=== PATIENT | female | born 1990 | race Caucasian/White ===

== ENCOUNTER 2018-10-29 11:07 | Emergency (ER) | payer OTHER ==
[2018-10-29] MEDS ORDERED: MORPHINE SULFATE 4 MG INJ IV ONE (12:01)
[2018-10-29] MEDS ORDERED: Sodium Chloride 0.9% 1000 ML 1,000 ML IV STA (12:01)
[2018-10-29] MEDS ORDERED: Zofran 4 MG/2 ML VIAL IV ONE (12:01)
--- NOTE | 2018-10-29 12:06 | ERPHSYRPT ---
- History of Present Illness Time Seen by Provider: 10/29/18 11:58 Historian: patient Exam Limitations: no limitations Patient Subjective Stated Complaint: pt reports at 4 am this morning she began having vomiting and diarrhea. pt report the vomiting is making her incision from her hysterectomy on friday hurt worse Triage Nursing Assessment: pt a&ox3. skin warm, dry, pink. cap refill <3 sec. skin turgor normal. pt has 3 lap incisions to abd. incision to right abd slightly reddened. no drainage noted to any of the incisions. all incisions well approximated. Physician History: 0.6-year-old white female with history of endometriosis status post 6 days ago Patient arrives with complaint of nausea vomiting diarrhea she states she is having abdominal pain from having the vomiting. No fevers Past medical history includes endometriosis Past surgical history includes tonsillectomy Timing/Duration: today Activities at Onset: none Abdominal Pain Onset Location: generalized abdomen Severity of Pain-Max: moderate Severity of Pain-Current: moderate Modifying Factors: Improves With: vomiting. Worsens With: analgesics, antacids , breathing, coughing, defecating, eating, exercise, lying down, movement, palpation, rest, urinating, position, walking Associated Symptoms: diarrhea, nausea, vomiting, No back, No chest pain, No diaphoresis, No fever/chills, No fatigue, No headache, No heartburn, No loss of appetite, No neck pain, No rash, No shortness of breath, No syncope Previous symptoms: no prior history Allergies/Adverse Reactions: lactose Adverse Reaction (Mild, Verified 10/12/15 06:21) nystatin Adverse Reaction (Mild, Verified 10/12/15 06:21) Itching Home Medications: Hydrocodone/APAP 5-325 Tab^^^ [Gravette 5-325 Tablet^^^] 1 - 2 tab PO Q4HPRN PRN MDD 6 10/29/18 [History] Ibuprofen 600 mg PO Q6H 10/29/18 [History] Hx Tetanus, Diphtheria Vaccination/Date Given: Yes Hx Influenza Vaccination/Date Given: No Hx Pneumococcal Vaccination/Date Given: No Immunizations Up to Date: Yes - Review of Systems Constitutional: No Fever, No Chills Eyes: No Symptoms Ears, Nose, & Throat: No Symptoms Respiratory: No Cough, No Dyspnea Cardiac: No Chest Pain, No Edema, No Syncope Abdominal/Gastrointestinal: Abdominal Pain, Nausea, Vomiting, Diarrhea, No Constipation, No Hematemesis, No Hematochezia, No Melena, No Dysphagia, No Appetite Changes Genitourinary Symptoms: No Dysuria Musculoskeletal: No Back Pain, No Neck Pain Skin: No Rash Neurological: No Dizziness, No Focal Weakness, No Sensory Changes Psychological: No Symptoms Endocrine: No Symptoms All Other Systems: Reviewed and Negative - Past Medical History Pertinent Past Medical History: Yes Neurological History: No Pertinent History ENT History: No Pertinent History Cardiac History: No Pertinent History Respiratory History: Asthma Endocrine Medical History: No Pertinent History Musculoskeletal History: No Pertinent History GI Medical History: No Pertinent History History: No Pertinent History Psycho-Social History: No Pertinent History Female Reproductive Disorders: No Pertinent History Other Medical History: one miscarrage taken naturally - Past Surgical History Past Surgical History: Yes (T&A) Neuro Surgical History: No Pertinent History Cardiac: No Pertinent History Respiratory: No Pertinent History Gastrointestinal: No Pertinent History Genitourinary: No Pertinent History Musculoskeletal: No Pertinent History Female Surgical History: Hysterectomy Other Surgical History: tonsils - Social History Smoking Status: Former smoker Exposure to second hand smoke: No Drug Use: none Patient Lives Alone: No - Female History Hx Last Menstrual Period: hyster Hx Now: No - Nursing Vital Signs Nursing Vital Signs: Initial Vital Signs Temperature 97.8 F 10/29/18 11:31 Pulse Rate 66 10/29/18 11:31 Respiratory Rate 18 10/29/18 11:31 Blood Pressure 137/77 10/29/18 11:31 O2 Sat by Pulse Oximetry 100 10/29/18 11:31 Pain Scale Pain Intensity 2 - Physical Exam General Appearance: mild distress, alert Eye Exam: PERRL/EOMI, eyes nml inspection Ears, Nose, Throat Exam: normal ENT inspection, pharynx normal, moist mucous membranes Neck Exam: normal inspection, non-tender, supple, full range of motion Respiratory Exam: normal breath sounds, lungs clear, No respiratory distress Cardiovascular Exam: regular rate/rhythm, normal heart sounds, capillary refill <2 sec Gastrointestinal/Abdomen Exam: soft, No tenderness, No mass Back Exam: normal inspection, normal range of motion, No CVA tenderness, No vertebral tenderness Extremity Exam: normal inspection Neurologic Exam: alert, oriented x 3, cooperative, delivery coordinator II-XII nml as tested, normal mood/affect, nml cerebellar function, sensation nml, No motor deficits Skin Exam: normal color, warm, dry SpO2 Interpretation: normal (100%) SpO2: 100 - Course Nursing assessment & vital signs reviewed: Yes - CT Exams Abdomen/Pelvis CT Interpretation: Discussed w/radiologist (CT abdomen and pelvis: Impression 1. Status post partial hysterectomy. Tiny pelvic free fluid either postsurgical or from rupture/leaking cyst. 2. Incidental hepatomegaly. 3. Remaining CT abdomen/pelvis with contrast exam is negative..) Ordered Tests: Active Orders 24 hr Category Date Time Status IV Insertion STAT Care 10/29/18 12:01 Active ABDOMEN AND PELVIS W CONTRAST [CT] Stat Exams 10/29/18 13:49 Completed AMYLASE Stat Lab 10/29/18 12:30 Completed CBC W DIFF Stat Lab 10/29/18 12:30 Completed CMP Stat Lab 10/29/18 12:30 Completed CULTURE,URINE Stat Lab 10/29/18 12:05 Received LIPASE Stat Lab 10/29/18 12:30 Completed UA W/RFX UR CULTURE Stat Lab 10/29/18 12:05 Completed Medication Summary Discontinued Medications Generic Name Dose Route Start Last Admin Trade Name Freq PRN Reason Stop Dose Admin Sodium Chloride 1,000 mls @ 999 mls/hr 10/29/18 12:01 10/29/18 14:19 Sodium Chloride 0.9% 1000 Ml IV 10/29/18 13:01 Infused .Q1H1M STA Infusion Sodium Chloride Confirm 10/29/18 12:23 Sodium Chloride 0.9% 1000 Ml Administered 10/29/18 12:24 Dose 1,000 mls @ ud .ROUTE .STK-MED ONE Morphine Sulfate 4 mg 10/29/18 12:01 10/29/18 12:28 Morphine Sulfate 4 Mg Inj IV 10/29/18 12:02 4 mg STAT ONE Administration Morphine Sulfate Confirm 10/29/18 12:23 Morphine Sulfate 4 Mg Inj Administered 10/29/18 12:24 Dose 4 mg .ROUTE .STK-MED ONE Ondansetron HCl 4 mg 10/29/18 12:01 10/29/18 12:28 Zofran 4 Mg/2 Ml Vial IV 10/29/18 12:02 4 mg STAT ONE Administration Ondansetron HCl Confirm 10/29/18 12:23 Zofran 4 Mg/2 Ml Vial Administered 10/29/18 12:24 Dose 4 mg .ROUTE .STK-MED ONE Lab/Rad Data: Laboratory Result Diagrams 10/29/18 12:30 10/29/18 12:30 Laboratory Results 10/29/18 10/29/18 10/29/18 Range/Units 12:30 12:30 12:05 WBC 15.5 H (4.0-10.5) K/mm3 RBC 4.74 (4.1-5.4) M/mm3 Hgb 13.9 (12.0-16.0) gm/dl Hct 41.2 (35-47) % MCV 86.9 (78-100) fl MCH 29.3 (26-32) pg MCHC 33.7 (32-36) g/dl RDW 12.9 (11.5-14.0) % Plt Count 399 (150-450) K/mm3 MPV 9.8 H (6-9.5) fl Gran % 78.9 H (36.0-66.0) % Eos # (Auto) 0.17 (0-0.5) Absolute Lymphs (auto) 1.76 (1.0-4.6) Absolute Monos (auto) 1.32 H (0.0-1.3) Lymphocytes % 11.4 L (24.0-44.0) % Monocytes % 8.5 (0.0-12.0) % Eosinophils % 1.1 (0.00-5.0) % Basophils % 0.1 (0.0-0.4) % Absolute Granulocytes 12.18 H (1.4-6.9) Basophils # 0.02 (0-0.4) Sodium 140 (137-145) mmol/L Potassium 4.4 (3.5-5.1) mmol/L Chloride 103 (98-107) mmol/L Carbon Dioxide 24 (22-30) mmol/L Anion Gap 17.5 H (5-15) MEQ/L BUN 9 (7-17) mg/dL Creatinine 0.53 (0.52-1.04) mg/dL Estimated GFR > 60.0 ML/MIN Glucose 92 (74-106) mg/dL Calcium 9.5 (8.4-10.2) mg/dL Total Bilirubin 0.40 (0.2-1.3) mg/dL AST 38 H (14-36) U/L ALT 26 (0-35) U/L Alkaline Phosphatase 118 (38-126) U/L Serum Total Protein 7.2 (6.3-8.2) g/dL Albumin 4.3 (3.5-5.0) g/dL Amylase 75 (30-110) U/L Lipase 52 (23-300) U/L Urine Color STRAW (YELLOW) Urine Appearance SLIGHTLY CLOUDY (CLEAR) Urine pH 6.0 (5-6) Ur Specific [place] 1.006 (1.005-1.025) Urine Protein NEGATIVE (Negative) Urine Ketones NEGATIVE (NEGATIVE) Urine Blood SMALL (0-5) Harsh/ul Urine Nitrite NEGATIVE (NEGATIVE) Urine Bilirubin NEGATIVE (NEGATIVE) Urine Urobilinogen NEGATIVE (0-1) mg/dL Ur Leukocyte Esterase MODERATE (NEGATIVE) Urine WBC (Auto) 11-15 (0-5) /HPF Urine RBC (Auto) 0-2 (0-2) /HPF U Epithel Cells (Auto) MODERATE (FEW) /HPF Urine Bacteria (Auto) RARE (NEGATIVE) /HPF Urine Mucus (Auto) SLIGHT (NEGATIVE) /HPF Urine Culture Reflexed YES (NO) Urine Glucose NEGATIVE (NEGATIVE) mg/dL - Progress Progress: improved Progress Note: 10/29/18 15:[address] feeling better[address] Will place patient on Bactrim for urinary tract infection and Zofran. Patient with CT showing tiny amount of pelvic free fluid either postsurgical for ruptured/leaking cyst patient with recent hysterectomy. - Departure Departure Disposition: Home Clinical Impression: status post recent Abdominal pain Qualifiers: Abdominal location: upper abdomen, unspecified Qualified Code(s): R10.10 - Upper abdominal pain, unspecified Vomiting Qualifiers: Vomiting type: unspecified Vomiting Intractability: non-intractable Nausea presence: with nausea Qualified Code(s): R11.2 - Nausea with vomiting, unspecified UTI (urinary tract infection) Qualifiers: Urinary tract infection type: site unspecified Hematuria presence: without hematuria Qualified Code(s): N39.0 - Urinary tract infection, site not specified Condition: Fair Critical Care Time: No Referrals: EUSEBIO SCHAEFFER [Primary Care Provider] - Additional Instructions: Return home. Plenty of fluids clear fluids only 24-48 hours if nausea vomiting. Zofran as directed. Bactrim DS one orally twice a day for 10 days. Followup with your family . Return for acute distress or for severe symptoms. Prescriptions: Ondansetron ODT 4 MG [Zofran Odt 4 mg] 4 mg PO Q6H PRN PRN #10 tab.rapdis PRN Reason: nausea and vomiting Smz/Tmp Ds Tablet [Bactrim Ds Tablet] 1 tab PO BID #20 tablet
[2018-10-29] MEDS ORDERED: MORPHINE SULFATE 4 MG INJ ONE (12:23)
[2018-10-29] MEDS ORDERED: Zofran 4 MG/2 ML VIAL ONE (12:23)
[2018-10-29] MEDS ORDERED: Sodium Chloride 0.9% 1000 ML 1,000 ML ONE (12:23)
[2018-10-29 12:32] LABS: Appearance SLIGHTLY CLOUDY (CLEAR); Bacteria RARE /HPF (NEGATIVE); Bilirubin NEGATIVE (NEGATIVE); Blood SMALL Ery/ul (0-5); Epithelial Cells MODERATE /HPF (FEW); Glucose NEGATIVE (NEGATIVE); Ketones NEGATIVE (NEGATIVE); Leukocyte Esterase MODERATE (NEGATIVE); Mucus SLIGHT /HPF (NEGATIVE); Nitrite NEGATIVE (NEGATIVE); Protein,Urine Dip NEGATIVE (Negative); RBC 0-2 /HPF (0-2); Specific Gravity 1.006 (1.005-1.025); Urobilinogen NEGATIVE mg/dL (0-1)
[2018-10-29 12:50] LABS: BASOPHIL % 0.1 % (0.0-0.4); Basophil (Absolute #) 0.02 (0-0.4); Eosinophil % 1.1 % (0.00-5.0); Eosinophil (Absolute #) 0.17 (0-0.5); Granulocyte Absolute (ANC) 12.18 (1.4-6.9); Granulocytes % 78.9 % (36.0-66.0); Hematocrit 41.2 % (35-47); Hemoglobin 13.9 gm/dl (12.0-16.0); Lymphocyte (Absolute #) 1.76 (1.0-4.6); Lymphocytes % 11.4 % (24.0-44.0); Mean Cell Volume 86.9 fl (78-100); Mean Corpuscular Hemoglobin 29.3 pg (26-32); Mean Corpuscular Hgb Concent. 33.7 g/dl (32-36); Mean Platelet Volume 9.8 fl (6-9.5); Monocyte (Absolute #) 1.32 (0.0-1.3); Monocytes % 8.5 % (0.0-12.0); Platelet Count 399 K/mm3 (150-450); Red Blood Count 4.74 M/mm3 (4.1-5.4); Red Cell Distribution Width 12.9 % (11.5-14.0); White Blood Count 15.5 K/mm3 (4.0-10.5)
[2018-10-29 12:56] LABS: ALBUMIN 4.3 g/dL (3.5-5.0); ALKALINE PHOSPHATASE 118 U/L (38-126); AMYLASE 75 U/L (30-110); ANION GAP 17.5 MEQ/L (5-15); BLOOD UREA NITROGEN 9 mg/dL (7-17); CHLORIDE 103 mmol/L (98-107); Calcium 9.5 mg/dL (8.4-10.2); Carbon Dioxide 24 mmol/L (22-30); Creatinine 1 0.53 mg/dL (0.52-1.04); Glucose 92 mg/dL (74-106); LIPASE 52 U/L (23-300); Potassium 4.4 mmol/L (3.5-5.1); SGOT/AST 38 U/L (14-36); SGPT/ALT 26 U/L (0-35); SODIUM 140 mmol/L (137-145); Total Protein 7.2 g/dL (6.3-8.2)
--- NOTE | 2018-10-29 15:08 | XRAY ---
Indication: Right abdomen pain. Nausea, vomiting, diarrhea. Status post hysterectomy 7 days ago. Multiple contiguous axial images obtained through the abdomen and pelvis using 80 cc Isovue 370 contrast only. Comparison: None Lung bases demonstrates minimal bibasilar fibrosis/scarring. No infiltrate or effusion. Heart is not enlarged. Noncontrasted stomach and bowel loops appear nonobstructed. Normal appendix. Uterus surgically absent. Both ovaries identified with a few follicular cysts, largest on the left measuring 1.6 cm. Small pelvic free fluid either postsurgical or from rupture/leaking cyst. No free air. Hepatomegaly measuring 21.3 cm in CC dimension. Remaining liver, gallbladder, pancreas, spleen, adrenal glands, kidneys, ureters, bladder, and aorta appear unremarkable. No pathologic retroperitoneal lymphadenopathy. Osseous structures intact. No ventral or inguinal hernias. Impression: 1. Status post partial hysterectomy. Tiny pelvic free fluid either postsurgical or from rupture/leaking cyst. 2. Incidental hepatomegaly. 3. Remaining CT abdomen/pelvis with contrast exam is negative. CT DI 34.12
[2018-10-29 15:38] VITALS: BP 120/60; PULSE 74; O2SAT 96
== END 2018-10-29 15:37 | disposition home or self-care (01) ==
LOC: ED 11:07
DX: R11.2 Nausea with vomiting, unspecified (principal); R10.10 Upper abdominal pain, unspecified; N39.0 Urinary tract infection, site not specified; Z98.890 Other specified postprocedural states
CPT/HCPCS: 36000; 36415; 74177; 80053; 81001; 82150; 83690; 85025; 87086; 96360; 96374; 96375; 99284; J2270; J2405

== ENCOUNTER 2020-01-20 17:25 | Emergency (ER) | payer BC, MEDICAID ==
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
[2020-01-20 20:38] VITALS: BP 132/60; PULSE 86; O2SAT 98
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
== END 2020-01-20 20:34 | disposition home or self-care (01) ==
LOC: ED 17:25
DX: S16.1XXA Strain of muscle, fascia and tendon at neck level, initial encounter (principal); V47.0XXA Car driver injured in collision with fixed or stationary object in nontraffic accident, initial encounter; S80.212A Abrasion, left knee, initial encounter; S80.211A Abrasion, right knee, initial encounter; M79.602 Pain in left arm; M54.2 Cervicalgia; G50.1 Atypical facial pain; J32.0 Chronic maxillary sinusitis
CPT/HCPCS: 70450; 71045; 72125; 99284

== ENCOUNTER 2020-06-10 13:27 | Emergency (ER) | payer BC ==
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
[2020-06-10 14:26] VITALS: BP 120/74; PULSE 65; O2SAT 97
== END 2020-06-10 14:25 | disposition home or self-care (01) ==
LOC: ED 13:27
DX: Z48.01 Encounter for change or removal of surgical wound dressing (principal)
CPT/HCPCS: 99283

== ENCOUNTER 2020-06-14 21:53 | Emergency (ER) | payer BC ==
[2020-06-14] MEDS ORDERED: Zofran 4 MG/2 ML VIAL IV ONE (22:45)
[2020-06-14] MEDS ORDERED: Sodium Chloride 0.9% 1000 ML 1,000 ML IV STA (22:45)
[2020-06-14] MEDS ORDERED: ANTIVERT 25 MG PO ONE (22:46)
[2020-06-14] MEDS ORDERED: ANTIVERT 25 MG ONE ×2 (23:05→23:28)
[2020-06-14] MEDS ORDERED: Zofran 4 MG/2 ML VIAL ONE ×2 (23:05→23:28)
[2020-06-14] MEDS ORDERED: Sodium Chloride 0.9% 1000 ML 0 ML ONE (23:05)
[2020-06-14] MEDS ORDERED: Sodium Chloride 0.9% 1000 ML 1,000 ML ONE (23:28)
[2020-06-14 23:30] LABS: BASOPHIL % 0.3 % (0.0-0.4); Basophil (Absolute #) 0.03 (0-0.4); Eosinophil % 2.8 % (0.00-5.0); Eosinophil (Absolute #) 0.32 (0-0.5); Hematocrit 43.8 % (35-47); Hemoglobin 14.3 gm/dl (12.0-16.0); Lymphocyte (Absolute #) 3.29 (1.0-4.6); Lymphocytes % 28.8 % (24.0-44.0); Mean Corpuscular Hemoglobin 29.1 pg (26-32); Mean Corpuscular Hgb Concent. 32.6 g/dl (32-36); Mean Platelet Volume 9.4 fl (7.5-11.0); Monocyte (Absolute #) 1.17 (0.0-1.3); Monocytes % 10.3 % (0.0-12.0); Neutrophil % 57.8 % (36.0-66.0); Platelet Count 414 K/mm3 (150-450); Red Blood Count 4.92 M/mm3 (4.1-5.4); Red Cell Distribution Width 13.4 % (11.5-14.0); White Blood Count 11.4 K/mm3 (4.0-10.5)
[2020-06-14 23:46] LABS: ALBUMIN 4.2 g/dL (3.5-5.0); ALKALINE PHOSPHATASE 112 U/L (38-126); ANION GAP 11.1 MEQ/L (5-15); BLOOD UREA NITROGEN 15 mg/dL (7-17); CHLORIDE 104 mmol/L (98-107); Calcium 9.2 mg/dL (8.4-10.2); Carbon Dioxide 26 mmol/L (22-30); Creatinine 1 0.63 mg/dL (0.52-1.04); EST GLOMERULAR FILTRATION RATE > 60.0 ML/MIN; Glucose 110 mg/dL (74-106); Potassium 3.8 mmol/L (3.5-5.1); SGOT/AST 22 U/L (14-36); SGPT/ALT 19 U/L (0-35); SODIUM 138 mmol/L (137-145); Total Protein 6.9 g/dL (6.3-8.2)
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
[2020-06-15 00:58] VITALS: BP 118/63; PULSE 62; O2SAT 97
--- NOTE | 2020-06-15 09:17 | XRAY ---
Indication: Dizziness. Comparison: January 20, 2020. Portable chest again demonstrates normal heart, lungs, and bony thorax.
== END 2020-06-15 01:09 | disposition home or self-care (01) ==
LOC: ED 21:53
DX: R42 Dizziness and giddiness (principal)
CPT/HCPCS: 36000; 36415; 71045; 80053; 81025; 84484; 85025; 93005; 93041; 96360; 96374; 99284; J2405; A9270-GY